=== PATIENT | male | born 1980 | race Caucasian/White ===

== ENCOUNTER 2024-11-10 21:10 | Inpatient (IN) | payer OTHER, BC ==
[~2024-11-10] VITALS: Ht 172.7 cm; Wt 82.0 kg
[2024-11-10 21:53] LABS: EOSINOPHILS 1.2 % (0.8-7.0); HEMATOCRIT 46.7 % (40.1-51.0); LYMPHOCYTES 24.2 % (21.8-53.1); MCH 32.3 PG (25.7-32.2); MCHC 34.3 g/dL (32.3-36.5); MCV 94.2 fL (79.0-92.2); MONOCYTES 9.6 % (5.3-12.2); NEUTROPHILS 63.6 % (34.0-67.9); PLATELET COUNT 218 K/uL (163-337); RBC 4.96 M/uL (4.63-6.08)
[2024-11-10] MEDS ORDERED: fentaNYL citrate 100 MCG/2 ML VIAL IV PRN (22:00)
[2024-11-10] MEDS ORDERED: ETOMIDATE 40 MG/20 ML VIAL IV ONE (22:00)
[2024-11-10 22:14] LABS: ALBUMIN 4.1 g/dL (3.4-5.0); ALBUMIN/GLOBULIN RATIO 1.08 (1.1-2.4); BILIRUBIN, TOTAL 0.3 mg/dL (0.2-1.0); BUN/CREATININE RATIO 9.4 (6.0-28.6); CALCIUM 8.9 mg/dL (8.5-10.1); CREATININE, SERUM 1.17 mg/dL (0.70-1.30); PROTEIN, TOTAL 7.9 g/dL (6.4-8.2)
[2024-11-10] MEDS ORDERED: propofoL 200 MG/20 ML VIAL ONE (22:24)
[2024-11-10] MEDS ORDERED: HYDROmorphone HCL 1 MG/ML SYR ONE (22:24)
[2024-11-10] MEDS ORDERED: propofoL 200 MG/20 ML VIAL IV ONE (22:30)
[2024-11-10] MEDS ORDERED: HYDROmorphone HCL 1 MG/ML SYR IV ONE (22:30)
[2024-11-10] MEDS ORDERED: HYDROmorphone HCL 1 MG/ML SYR IV PRN (23:00)
[2024-11-10] MEDS ORDERED: KETAMINE in NS 50 MG/5 ML SYR ONE (23:26)
[2024-11-10] MEDS ORDERED: LIDOCAINE HCL 2% 5 ML SDV ONE (23:44)
[2024-11-11] VITALS (9 sets, daily range): BP systolic 108–135; BP diastolic 67–89
[2024-11-11] MEDS ORDERED: LIDOCAINE HCL 2% 5 ML SDV ONE (00:45)
[2024-11-11] MEDS ORDERED: SUCCINYLCHOLINE IN 0.9% NACL 200 MG/10 ML SYRINGE ONE (00:45)
[2024-11-11] MEDS ORDERED: ROCURONIUM BROMIDE 50 MG/5 ML SYR ONE (00:45)
[2024-11-11] MEDS ORDERED: propofoL 200 MG/20 ML VIAL ONE (00:45)
[2024-11-11] MEDS ORDERED: TRANEXAMIC ACID IN NACL,ISO-OS 200 ML IV ONE (01:11)
[2024-11-11] MEDS ORDERED: CEFAZOLIN SODIUM 1 GM/10 ML SYR ONE (01:12)
[2024-11-11] MEDS ORDERED: OXYCODONE HCL 5 MG TAB PO PRN (01:45)
--- NOTE | 2024-11-11 02:32 | NUR ---
Patient to the medical floor. Patient is alert and oriented x3, no acute distrss. Left arm is elevated, cryocuff and sling in place. CMS intact to RUE. Patient reports pain is starting to increase, per report pt received a block by poultry picking machine tender. Vital signs are stable, sp02 95% on room air, respirations non labored. Patient oriented to room and call light. Bed alarm intact.
--- NOTE | 2024-11-11 02:34 | NUR ---
[facility] WIDE AWAKE AND C/O FEELING COLD. WARM BLANKETS PLACED ON PT. 0200 CRYO CUFF TO L SHOULDER AND SLING IN PLACE. PT LAYING ON R SIDE. NO C/O'S. 0210 TAKING SIPS OF WATER. 0220 TO ROOM 123. BED PLUGGED IN AND REPORT GIVEN TO RN.
--- NOTE | 2024-11-11 02:57 | NUR ---
Admin 0.5mg iv dilaudid for reports of 8/10 left shoulder pain.
--- NOTE | 2024-11-11 04:27 | NUR ---
Admin 0.5mg iv at this time for reports of 7/10 left shoulder pain. Left shoulder in sling, cryc cuff in place, cms intact. Patient stood at edge of bed to void, 600ml concentrated urine noted.
--- NOTE | 2024-11-11 06:21 | NUR ---
Admin oxycodone 10mg po with a snack for reported 7/10 left shoulder pain.
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
[2024-11-11] MEDS ORDERED: OXYCODONE HCL5 MG PO (09:40)
--- NOTE | 2024-11-11 10:03 | NUR ---
PT AWAKE AND ALERT SITTING UP IN BED. PT REPORTED PAIN, AND THIS CASTING MACHINE CONTROL BOARD OPERATOR SAID I WOULD NOTIFY THE NURSE. CLEANED UP ROOM, CALL LIGHT WITHIN REACH, PT REQUESTING NOTHING ELSE EXCEPT PAIN MEDICATION AT THIS TIME.
--- NOTE | 2024-11-11 11:03 | NUR ---
RECEIVED REPORT FROM DAY SHIFT RN. PATIENT IS RESTING IN BED WATCHING TV. PATIENT REPOSITIONED IN BED. PATIENT RATES PAIN AT A 4/10 AND DENIES THE NEED FOR PAIN MEDICATION AT THIS TIME. PATIENTS LUE IS NOTED TO BE IN A SLING AND SUPPORT ON A PILLOW. CRYO IN PLACE ON LEFT SHOULDER. PATIENT UPDATE ON PLAN OF CARE. PATIENT DENIES ANY FURTHER NEEDS. CALL LIGHT IN REACH.
--- NOTE | 2024-11-11 11:58 | NUR ---
PATIENT UP TO BR A SBA. PATIENTS ASSISTED PATIENT TO COMPLETE SHOWER. PATIENT IS NOW IN BED RESTING. PATIENTS LUE IS IN SLING AND ELEVATED ON PILLOW. PATIENTS CRYO REFILLED WITH ICE AND APPLIED TO LEFT SHOULDER. PATIENT DENIES ANY FURTHER NEEDS AT THIS TIME. CALL LIGHT IN REACH. FAMILY AT BEDSIDE.
--- NOTE | 2024-11-11 12:31 | NUR ---
ROUNDED ON PATIENT. VERBAL ORDER RECIEVED TO GIVE ADDITIONAL DOSE PAIN MEDICATIN. PATIENT GIVEN PRN PAIN MEDICATION FOR 8/10 PAIN IN HIS LEFT SHOULDER. PHARMACY AT BEDSIDE.
--- NOTE | 2024-11-11 12:36 | NUR ---
PLACED CALL TO MD TO GET [employer]RICTIONS FOR DISCHARGE INSTRUCTIONS. RECEIVED VERBAL ORDER FOR DC INSTRUCTIONS VERIFIED USING REPEATBACK METHOD.
--- NOTE | 2024-11-11 12:47 | NUR ---
PATIENTS DC VITALS TAKEN AND RECORDED. PATIENTS SL REMOVED AND PRESSURE DRESSING APPLIED. PATIENT EDUCATED TO REMOVE DRESSING ON RIGHT FOREWARM IN 5-10 MINUTES. PATIENT PROVIDED DC INSTRUCTIONS AND ALL QUESTIONS ANSWERED. PATIENT PROVIDED WRITTEN DC PACKET AND PAIN MEDICATION PRESCRIPTION. PATIENT PROVIDED ICE PACKS FOR CAR RIDE. ALL BELONGINGS WITH PATIENT AT PR. PATIENT DC'S WITH .
== END 2024-11-11 12:45 | disposition home or self-care (01) | DRG 494 ==
LOC: ED 21:10 → DS 11-11 00:52 → MS 11-11 02:23 → DS 11-11 02:25 → MS 11-11 02:27
PROVIDERS: Internal Medicine; ADMIT Specialist; ATTEND Specialist
PROC: 0PSD04Z Reposition Left Humeral Head with Internal Fixation Device, Open Approach (ICD-10-PCS; principal; 2024-11-11 01:22)
DX: S42.252A Displaced fracture of greater tuberosity of left humerus, initial encounter for closed fracture (principal); S05.12XA Contusion of eyeball and orbital tissues, left eye, initial encounter; I10 Essential (primary) hypertension; V86.95XA Unspecified occupant of 3- or 4- wheeled all-terrain vehicle (ATV) injured in nontraffic accident, initial encounter
CPT/HCPCS: 23665; 36415; 73030; 80053; 85025; 94762; 94799; 96374; 96375; 96376; 99152; 99153; 99285-25; A9270; G0480; J0330; J1171; J2003; J2704; J3010; J3490